=== PATIENT | female | born 1955 | race Caucasian/White ===

== ENCOUNTER 2019-03-31 05:28 | Day surgery (SDC) | payer OTHER, SELFPAY ==
--- NOTE | 2019-03-28 10:00 | EKG12_ITS ---
Test Reason : PRE-OP Blood Pressure : / mmHG Vent. Rate : 062 BPM Atrial Rate : 062 BPM P-R Int : 160 ms QRS Dur : 118 ms QT Int : 386 ms P-R-T Axes : 046 050 033 degrees QTc Int : 391 ms Normal sinus rhythm Incomplete right bundle branch block Borderline ECG Confirmed by NATALIIA MCGUIRE, MARQUISE ([id number]), scientific editor SONDRA TERESA ([id number]) on 03/28/2019 2:29:00 PM Referred By: Marizol Templeton Confirmed By:MARQUISE WILLIAM MD
[2019-03-28 11:02] LABS: Anion Gap 7 (5-15); BUN 9 mg/dL (7-18); BUN/Creat Ratio 12.2 RATIO (10-20); Chloride 101 mmol/L (98-107); Creatinine, Serum 0.74 mg/dL (0.55-1.02); EST Glomerular Filtration Rate 85 mL/min (>60); Est Glom Filt Rate - Afr Amer 103 mL/min (>60); Glucose 99 mg/dL (74-106); Potassium 3.5 mmol/L (3.5-5.1); Sodium Level 139 mmol/L (136-145)
[2019-03-31] VITALS (10 sets, daily range): BP systolic 91–126; BP diastolic 48–76; PULSE 55–81; RESP 16–18; TEMP 36–36.7; O2SAT 94–100; BMI 25.0
[2019-03-31] MEDS: Gabapentin 600 MG Tablet PO (05:59)
[2019-03-31] MEDS: Phenazopyridine 95 MG Tablet 190 MG PO (06:00)
[2019-03-31] MEDS: Acetaminophen 500 MG Tablet 1000 MG PO (06:00)
[2019-03-31] MEDS: Lubricating Jelly 60 GM Tube 30 GM TOPICAL (06:57)
--- NOTE | 2019-03-31 07:30 | HYST_PTH ---
PATIENT: TERRANCE MICHEL [place] [facility] [place][id number] AGE/SX: 64/F ROOM: RE03/31/[address]: Dr. Marizol Templeton MD : [id number] BED: DIS: 03/31/2019 SPEC #: [id number] RECD: 03/31/19 10:48 STATUS: CIERRA BOB #: [id number] DONATO: 03/31/19 07:[address]: Marizol Templeton DEPT: SURGICAL PATHOLOGY RECD BY: Reyes Damico ENTERED: 03/31/19 13:34 SP TYPE: HYSTERECT OTHR DR: Viviane Ramirez Tissues: Uterus, NOS Procedures: Surgery Specimen Level V HEADER OPERATION: Hysterectomy, vaginal A & P, bilateral salpingectomy PRE-OP DIAGNOSIS: Uterine prolapse, stress urinary incontinence TISSUE SUBMITTED: Uterus, cervix, bilateral fallopian tubes MICROSCOPIC DIAGNOSIS Uterus, hysterectomy: Cervix - nabothian cysts and mild chronic inflammation. Mild hyperkeratosis. Endometrium - inactive endometrium with focal cystic change. Myometrium - leiomyomas with degenerative and calcific change. Adenomyosis. Right and left fallopian tubes - no pathologic diagnosis. AM:geraldo 04/06/19 MICROSCOPIC DESCRIPTION Slides are reviewed. GROSS DESCRIPTION Received in fixative is one container labeled with the patient's name and designated uterus. The specimen consists of a uterus with attached cervix measuring 8 x 4.5 x 3.5 cm and weighing 53 gm. The ectocervix is oval in contour and free of mass lesions. The endocervical canal measures 2.8 cm in length and is grossly unremarkable. The triangular endometrial cavity measures 4 x 2.7 cm. The velvety, light gordon endometrium measures up to 0.2 cm in thickness. The myometrium measures 1.8 cm in average thickness. The anterior myometrial wall contains a smooth, glistening gordon-white nodule measuring 1.2 cm in greatest dimension. The cut surfaces have whorled appearances with calcific change. The posterior endometrial wall contains a similar nodule measuring 1 cm in greatest dimension. Two fallopian tubes are also present free in the container with an average length of 3 cm and maximal diameter of 0.5 cm. 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 / AM:geraldo 03/31/19 TC:1 CPT: 55687
[2019-03-31] MEDS: Cefazolin 2 GM in 0.9% Normal Saline 100 ML IV (07:38)
[2019-03-31] MEDS: Bupiv/Epi 0.5% Mpf 30 ML Vial (08:00)
[2019-03-31] MEDS: LORazepam 2 MG/ML Syringe 0.5 MG IV (09:34)
--- NOTE | 2019-03-31 09:39 | DCINST_ITS ---
Discharge Activity: Return to Normal Activity, May not drive while taking narcotic pain medications., May Shower Return to work on:: 05/12/19 May shower in (days): 1 May resume sexual activity in: 6 weeks Call your doctor if your incision/area has: Sudden Increased Bleeding, Increased Pain/ Swelling, Increased Redness, Foul Smelling Discharge Call your doctor if you observe: Fever of 101 or Higher, Inability to urinate, Inability to have a bowel movement, Using more than one pad per hour Additional Instructions: Patient given prescriptions and postop instructions in the office. Allergies/Adverse Reactions: Allergies No Known Allergies Allergy (Verified 03/24/19 10:59) Medications to take at Discharge Amlodipine [Norvasc] 5 mg PO DAILY 03/24/19 Esomeprazole Mag Trihydrate [Nexium] 20 mg PO DAILY 03/24/19 Fluticasone 0.05% [Flonase Nasal [place]] 1 spray NASAL DAILY 03/24/19 Hydrochlorothiazide [Hctz] 25 mg PO DAILY 03/24/19 Ibuprofen [Motrin] 800 mg PO TID PRN PRN 03/24/19 Orders to be completed after discharge: 12 Lead EKG [[facility]] Facility: [facility], Location: Cardiovascular Services Primary Care Physician: Viviane Ramirez [Primary Care Provider] - Test Results: Test results from this visit will be discussed in further detail at your follow- up appointment, if applicable. Please Follow Up With: Marizol Templeton MD When: six weeks Proposed Discharge Date: 03/31/19
--- NOTE | 2019-03-31 09:55 | PCM.HP.BLA ---
History and Physical Date of Admission: 03/31/19 history of prior illness: Kevin Martinez is a 64-year-old female who presents with uterovaginal prolapse and stress urinary incontinence Vital signs blood pressure 132/90 weight 161 pounds height 67 inches Examination General appearance: Normal alert well-hydrated no acute distress Head: Normocephalic, atraumatic Lungs: Clear to auscultation bilaterally no rales rubs or rhonchi
--- NOTE | 2019-03-31 09:57 | PCM.HP.STD ---
Problem List (1) Uterovaginal prolapse, incomplete Status: Acute (2) Female stress incontinence Status: Acute History of Present Illness Date of Admission: 03/31/19 The patient is a 64 year old F with uterovaginal prolapse and female stress urinary incontinence. 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 TENDER history Lives: Spouse/ Significant Other Smoking Status: Never smoker Tobacco Use: Non-smoker Alcohol: Occasional Drugs: None Review of Systems Constitutional: Denies: Chills, Fever, Weight Change HEENT: Denies: Head Aches, Sinus Congestion, Sinus Drainage Cardiovascular: Denies: Chest Pain, Palpitations Respiratory: Denies: Cough, Shortness of breath at rest, Sputum production Gastrointestinal: Denies: Abdominal Pain, Nausea, Vomiting Genitourinary: Denies: Dysuria Musculoskeletal: Denies: Joint Pain, Joint Tenderness Skin: Denies: Rash, Wounds Neurological: Denies: Numbness, Tingling, Focal weakness Psychiatric: Denies: Anxiety, Depression, Homicidal Ideations, Suicidal Ideations Hematologic/ Lymphatic: Denies: Easy Bruising, Easy Bleeding VTE Information - Inpt Only VTE Present on Admission: Yes VTE Mechan Device Prophylaxis: SCD's VTE Pharm Prophylaxis ordered?: Yes Patient Problems: Active and Suspected Problems (Last Updated 03/31/19 @ 10:01 by Marizol Templeton MD) Uterovaginal prolapse, incomplete (Acute) Female stress incontinence (Acute) - Physical Exam General: Alert, Oriented x3, Cooperative HEENT: Atraumatic, PERRLA, EOMI, Normocephalic Neck: Supple, No JVD, Negative Carotid Bruits Lungs: Clear to auscultation, Normal air movement Cardiovascular: Regular rate, No murmurs Abdomen: Bowel Sounds Present, Soft, Non Tender Extremities: No edema, Capillary Refill Less than 3 Seconds Skin: No rashes, No breakdown Musculoskeletal: No Tenderness to Palpation of Joints or Extremities Neurological: Cranial nerves II-XII grossly intact Psych/Mental Status: Normal Affect, Appropriate Vital Signs Temp Pulse Resp BP Pulse Ox 96.8 F L 55 L 16 91/48 L 94 03/31/19 09:52 03/31/19 09:52 03/31/19 09:52 03/31/19 09:52 03/31/19 09:52 Oxygen Delivery Method Room Air Weight: 72.5 kg Body Mass Index (BMI) 25.0 Intake and Output for Last 24 Hours 03/29/19 03/30/19 03/31/19 23:59 23:59 23:59 Output Total 0 / 0 Balance 0 / 0 Assessment/Plan All Active Problems (Last Updated 03/31/19 @ 10:01 by Marizol Templeton MD) Uterovaginal prolapse, incomplete (Acute) Female stress incontinence (Acute) Proceed with surgery as planned I have re-examined the patient. There are no clinical changes since date of exam
--- NOTE | 2019-03-31 10:01 | HP.PCM_ITS ---
Problem List (1) Uterovaginal prolapse, incomplete Status: Acute (2) Female stress incontinence Status: Acute History of Present Illness Date of Admission: 03/31/19 The patient is a 64 year old F with uterovaginal prolapse and female stress urinary incontinence. 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 ASSISTANT history Lives: Spouse/ Significant Other Smoking Status: Never smoker Tobacco Use: Non-smoker Alcohol: Occasional Drugs: None Review of Systems Constitutional: Denies: Chills, Fever, Weight Change HEENT: Denies: Head Aches, Sinus Congestion, Sinus Drainage Cardiovascular: Denies: Chest Pain, Palpitations Respiratory: Denies: Cough, Shortness of breath at rest, Sputum production Gastrointestinal: Denies: Abdominal Pain, Nausea, Vomiting Genitourinary: Denies: Dysuria Musculoskeletal: Denies: Joint Pain, Joint Tenderness Skin: Denies: Rash, Wounds Neurological: Denies: Numbness, Tingling, Focal weakness Psychiatric: Denies: Anxiety, Depression, Homicidal Ideations, Suicidal Ideations Hematologic/ Lymphatic: Denies: Easy Bruising, Easy Bleeding VTE Information - Inpt Only VTE Present on Admission: Yes VTE Mechan Device Prophylaxis: SCD's VTE Pharm Prophylaxis ordered?: Yes Patient Problems: Active and Suspected Problems (Last Updated 03/31/19 @ 10:01 by Marizol Templeton MD) Uterovaginal prolapse, incomplete (Acute) Female stress incontinence (Acute) - Physical Exam General: Alert, Oriented x3, Cooperative HEENT: Atraumatic, PERRLA, EOMI, Normocephalic Neck: Supple, No JVD, Negative Carotid Bruits Lungs: Clear to auscultation, Normal air movement Cardiovascular: Regular rate, No murmurs Abdomen: Bowel Sounds Present, Soft, Non Tender Extremities: No edema, Capillary Refill Less than 3 Seconds Skin: No rashes, No breakdown Musculoskeletal: No Tenderness to Palpation of Joints or Extremities Neurological: Cranial nerves II-XII grossly intact Psych/Mental Status: Normal Affect, Appropriate Vital Signs Temp Pulse Resp BP Pulse Ox 96.8 F L 55 L 16 91/48 L 94 03/31/19 09:52 03/31/19 09:52 03/31/19 09:52 03/31/19 09:52 03/31/19 09:52 Oxygen Delivery Method Room Air Weight: 72.5 kg Body Mass Index (BMI) 25.0 Intake and Output for Last 24 Hours 03/29/19 03/30/19 03/31/19 23:59 23:59 23:59 Output Total 0 / 0 Balance 0 / 0 Assessment/Plan All Active Problems (Last Updated 03/31/19 @ 10:01 by Marizol Templeton MD) Uterovaginal prolapse, incomplete (Acute) Female stress incontinence (Acute) Proceed with surgery as planned I have re-examined the patient. There are no clinical changes since date of exam
--- NOTE | 2019-03-31 10:03 | PCM.OPRPT ---
Problem List (1) Uterovaginal prolapse, incomplete Status: Acute (2) Female stress incontinence Status: Acute Report of Operation Date of Procedure: 03/31/19 Pre-Operative Diagnosis: Female stress urinary incontinence and uterovaginal prolapse Post-Operative Diagnosis: Same Surgery/Procedure Performed:: Marizol Templeton MD Description of Surgical Findings:: No bladder urethral or rectal injury. Bilateral ureteral orifices were noted to be patent with Pyridium stained urine at the time of cystoscopy. computer security coordinator: Rozina Live Type of Anesthesia:: General Special Medications: 0.5% Marcaine with epinephrine Specimen's removed: Uterus cervix and bilateral fallopian tubes Drains: Palacio Estimated Blood Loss (mL): 50 cc Fluids Replaced: 1300 cc LR Description of Procedure: Patient was taken to the operating room where [general anesthesia] was initiated. The patient was placed in dorsolithotomy position and prepped and draped in sterile fashion. A Palacio catheter was placed in the patient's bladder. A Ames retractor was used for adequate retraction. The cervix was grasped with two Hany clamps. A circumferential incision was made with a Bovie electrocautery device. The anterior cul-de-sac was entered sharply with Metzenbaum scissors and the bladder was retracted out of the operative field using a Coleraine retractor. The posterior cul-de-sac was entered sharply using curved Lebron scissors and retracted using a weighted speculum. The hysterectomy was then performed by serially clamping cutting and suture ligating the uterosacral ligaments bilaterally, the vessels of the broad ligament including the uterine vessels, and the utero-ovarian pedicle. The uterus and cervix were passed off the sterile field and sent to pathology. The fallopian tubes were grasped with Romero clamps and removed using Bovie electrocautery. Both fallopian tubes were sent to pathology as well. The bowel was packed out of the cul-de-sac using a moist Kerlix sponge. Breisky Navratil retractors were used to retract the bowel bowel out of the cul-de-sac. A 0 PDS suture was passed through the uterosacral ligament on the patient's right side. This was followed by a 2-0 Prolene suture. This procedure was then repeated on the patient's contralateral side. The sponge and retractors were removed from the pelvis The vaginal epithelium overlying the anterior vaginal wall was grasped with 2 Allis clamps and injected with half percent Marcaine with epinephrine. A vertical midline incision was made with a 15 blade scalpel. The underlying pubocervical fascia was dissected off the overlying vaginal epithelium. The herniation of the vaginal wall was repaired with horizontal mattress sutures of 2-0 PDS. The redundant vaginal epithelium was excised and discarded. The anterior vaginal wall was repaired with a running locking 3-0 Vicryl suture. The vaginal epithelium overlying the urethra was grasped with two Allis clamps and injected with half percent Marcaine with epinephrine. A 1-1/2 cm midline incision was made over the mid urethra using a 15 blade scalpel. Tunnels were dissected bilaterally to the pubic rami. The [Caden Brandi] trocar was passed through the tunnel and the patient's right side through the space of Retzius and out the skin at the pubic symphysis. This was repeated on the patient's left side. Cystoscopy was performed and there was no evidence of bladder or urethral injury. Bilateral reflux of the Pyridium stained urine was seen from the ureteral orifices with tension held on the uterosacral sutures. The cystoscope was removed and the Palacio catheter was replaced. The sling was then drawn up through the tunnels, through the space of Retzius and out the skin at the pubic symphysis. Tension was adjusted by placing a Metzenbaum scissor tip between the sling and urethra. Once adequate tension was achieved the plastic sheaths were removed and the sling was trimmed at the skin. The skin was repaired with Dermabond. The vaginal epithelium overlying the mid urethra was repaired with a running locking 3-0 Vicryl suture. The uterosacral sutures were then brought through the corners of the vaginal cuff. The vaginal cuff was then closed with [id number] Vicryl sutures. The uterosacral sutures were then tied elevating the vaginal vault. Excellent hemostasis was noted. The vaginal epithelium overlying the posterior vaginal vault wall was grasped with 2 Allis clamps and injected with half percent Marcaine with epinephrine. A vertical midline incision was made with a 15 blade scalpel. The underlying rectovaginal fascia was dissected off the overlying vaginal epithelium. The herniation of the vaginal wall was repaired with horizontal mattress sutures of 2-0 PDS. The redundant vaginal epithelium was excised and discarded. The posterior vaginal wall incision was repaired with a running locking 3-0 Vicryl suture. All needle instrument and sponge counts were correct x2. Anesthesia was discontinued and the patient was taken to the recovery room draining Pyridium stained urine in her Palacio catheter. - Complications None - Admit VTE Documentation VTE Present on Admission: Yes VTE Mechan Device Prophylaxis: SCD's VTE Pharm Prophylaxis ordered?: Yes
== END 2019-03-31 12:58 | disposition home or self-care (01) ==
LOC: SDC 05:29 → AC 05:30
PROVIDERS: Anesthesiology; Family Provider Family Medicine; PCP Family Medicine; Referring Provider Obstetrics & Gynecology; Visit Provider Obstetrics & Gynecology
PROC: (CPT 58260; principal; 2019-03-31 07:10)
DX: D25.9 Leiomyoma of uterus, unspecified (principal); N80.0 Endometriosis of uterus; N88.8 Other specified noninflammatory disorders of cervix uteri; N88.0 Leukoplakia of cervix uteri; N72 Inflammatory disease of cervix uteri; N39.3 Stress incontinence (female) (male); N81.2 Incomplete uterovaginal prolapse; K21.9 Gastro-esophageal reflux disease without esophagitis; I10 Essential (primary) hypertension; Z79.899 Other long term (current) drug therapy
CPT/HCPCS: 00840; 51992; 58262; 36415; 80048; 88307; 93005; J7120; J1940; J2405